=== PATIENT | female | born 1960 | race Caucasian/White ===

== ENCOUNTER 2021-05-25 12:56 | Emergency (ER) | payer MEDICARE ==
[2021-05-25 13:27] VITALS: BP 160/97; PULSE 89; O2SAT 97
[2021-05-25] MEDS ORDERED: Rocephin 1000 MG INJ IM ONE (13:32)
--- NOTE | 2021-05-25 13:36 | ERPHSYRPT ---
- History of Present Illness Time Seen by Provider: 05/25/21 13:33 Source: patient Exam Limitations: no limitations Patient Subjective Stated Complaint: left sided earache Triage Nursing Assessment: Patient ambulated back to ED and transferred self to chair. Patient A+O X3. Patient's skin pink, warm and dry. Patient complains of left sided ear ache for 3 weeks. Patient complains of constant throbbing pain 10/10. Physician History: left sided earache for 3 weeks, denies any fever Timing/Duration: gradual onset, weeks (three) Severity: moderate ENT Location: ear (L) Prearrival Treatment: no prearrival treatment Associated Symptoms: denies symptoms Allergies/Adverse Reactions: No Known Drug Allergies Allergy (Unverified 05/25/21 13:20) Hx Influenza Vaccination/Date Given: No Hx Pneumococcal Vaccination/Date Given: No Immunizations Up to Date: Yes Travel Risk - International Travel Have you traveled outside of the country in past 3 weeks: No - Coronavirus Screening Are you exhibiting any of the following symptoms?: No Close contact with a COVID-19 positive Pt in past 14-21 Days: No - Vaccine Status Have you recieved a Covid-19 vaccination: Yes 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[employer] - Vaccination Dates Date of 2cond Vaccination (if applicable): 12/06/2020 - Review of Systems Constitutional: No Fever, No Chills Eyes: No Symptoms Ears, Nose, & Throat: Ear Pain Respiratory: No Cough, No Dyspnea Cardiac: No Chest Pain, No Edema, No Syncope Abdominal/Gastrointestinal: No Abdominal Pain, No Nausea, No Vomiting, No Diarrhea Genitourinary Symptoms: No Dysuria Musculoskeletal: No Back Pain, No Neck Pain Skin: No Rash Neurological: No Dizziness, No Focal Weakness, No Sensory Changes Psychological: No Symptoms Endocrine: No Symptoms All Other Systems: Reviewed and Negative - Past Medical History Pertinent Past Medical History: Yes Neurological History: No Pertinent History ENT History: No Pertinent History Cardiac History: Hypertension Respiratory History: No Pertinent History Endocrine Medical History: No Pertinent History Musculoskeletal History: No Pertinent History GI Medical History: No Pertinent History History: No Pertinent History Psycho-Social History: No Pertinent History Female Reproductive Disorders: No Pertinent History Other Medical History: hx of blood clot on intestine - Past Surgical History Past Surgical History: Yes Neuro Surgical History: No Pertinent History Cardiac: No Pertinent History Respiratory: No Pertinent History Gastrointestinal: Colon Resection, Hernia Repair Genitourinary: No Pertinent History Musculoskeletal: No Pertinent History Female Surgical History: No Pertinent History - Social History Smoking Status: Current every day smoker How long have you smoked: 0.5 Exposure to second hand smoke: Yes Drug Use: marijuana Patient Lives Alone: No - Female History Hx Now: No - Nursing Vital Signs Nursing Vital Signs: Initial Vital Signs Temperature 98.8 F 05/25/21 13:21 Pulse Rate 89 05/25/21 13:21 Respiratory Rate 18 05/25/21 13:21 Blood Pressure 160/97 05/25/21 13:21 O2 Sat by Pulse Oximetry 97 05/25/21 13:21 Pain Scale Pain Intensity 10 - Physical Exam General Appearance: no apparent distress, alert Eye Exam: bilateral eye: PERRL, EOMI Ear Exam: left ear: erythema, tenderness, TM bulging Nasal Exam: normal inspection Throat Exam: pharynx normal, moist mucus membranes, No tonsillar exudate Neck Exam: supple Cardiovascular/Respiratory Exam: normal breath sounds, regular rate/rhythm Abdominal Exam: non-tender, soft Neurologic Exam: alert, oriented x 3, sensation nml, No motor deficits Skin Exam: normal color, warm, dry SpO2: 97 - Course Nursing assessment & vital signs reviewed: Yes - Progress Progress: unchanged Counseled pt/family regarding: diagnosis, need for follow-up - Departure Departure Disposition: Home Clinical Impression: Left otitis media with effusion Condition: Stable Critical Care Time: No Referrals: HENRRY CAST MD [Primary Care Provider] - Instructions: Serous Otitis Media (DC) Additional Instructions: Discharge/Care Plan ESCOBAR PALACIO was seen on 05/25/21 in the Emergency Room. The patient was counseled regarding Diagnosis,Lab results, Imaging studies, need for follow up and when to return to the Emergency Room. Prescriptions given: Discharge Note I have spoken with the patient and/or caregivers. I have explained the patient's condition, diagnosis and treatment plan based on the information available to me at this time. I have answered the patient's and/or caregiver's questions and addressed any concerns. The patient and/or caregivers have as good understanding of the patient's diagnosis, condition and treatment plan as can be expected at this point. The vital signs have been stable. The patient's condition is stable and appropriate for discharge from the emergency department. The patient will pursue further outpatient evaluation with the primary care physician or other designated or consulting physician as outlined in the discharge instructions. The patient and/or caregivers are agreeable to this plan of care and follow-up instructions have been explained in detail. The patient and/or caregivers have received these instruction. The patient/and or caregivers are aware that any significant change in condition or worsening of symptoms should prompt an immediate return to this or the closest emergency department or call 911. ESCOBAR PALACIO was seen on 05/25/21 n the Emergency Room. At that time you were treated for an emergent condition, during your visit Laboratory, Radiology and/or other procedures may have been ordered. It is very important that you follow-up with your Primary Care Physician HENRRY CAST within the next 24- 48 hours to review your Emergency Room visit and the final results of testing that was ordered. Some test results such as Urine Cultures, Blood Cultures, and other cultures if ordered will not be finalized for 24-48 hours. If you do not have a Primary Care Provider please call the medical records department at [phone] ext [phone] to obtain a copy of your results or you may sign into our patient portal to obtain these results by visiting us @ [email or web address] and completing the following steps: 1. Click on the Patient Portal link 2. Click the Patient Self Enrollment Link to complete the enrollment form and entering your 3. Once the enrollment form is completed you will receive an email with a temporary ID and password at the email address you provided. 4. Next choose a user name and password. Your user name must be at least 4 characters long and your password must be at least 4 characters long. 5. Choose a security question from the list and provide your answer to the question. If you already have signed into the Health Portal you may access your Health Ca re Information 06/04 by the following steps: 1. Login to our website @ [email or web address] 2. Enter your original user name and password. FAQS The [facility] Health Portal is an online tool that contains your Lab Results, Radiology Reports, Visit History, Discharge Instructions and Health Summary Lab and Radiology Results will not be available for 72 hours on the portal. The Portal is a secure site, passwords are encryted and URLs are re-written so they cannot be copied and pasted. You and authorized family members are the only ones who can access your Portal. Also there is a timeout feature that protects your information if you leave the Portal page open. If you have technical difficulty please use the Contact Us link on the page this will allow you to submit any questions you have regarding the Portal or you may contact the Medical Record Department at [phone] ext [phone]. Prescriptions: Amoxicillin 500 mg Cap [Amoxil 500 mg] 500 mg PO TID #30 cap Ciprofloxacin HCl/Dexameth [Ciprodex Otic Suspension] 7.5 ml OT QID #7.5 drops
[2021-05-25] MEDS ORDERED: Rocephin 1000 MG INJ ONE (13:50)
[2021-05-25] MEDS ORDERED: XYLOCAINE 1% HCL 20 ML MDV ONE (13:51)
== END 2021-05-25 14:19 | disposition home or self-care (01) ==
LOC: ED 12:56
DX: H65.92 Unspecified nonsuppurative otitis media, left ear (principal)
CPT/HCPCS: 96372; 99283; J0696

== ENCOUNTER 2023-12-14 21:30 | Emergency (ER) | payer MEDICARE ==
[2023-12-14 22:19] VITALS: TEMP 98.4
--- NOTE | 2023-12-14 22:22 | ERPHSYRPT ---
- History of Present Illness Time Seen by Provider: 12/14/23 22:22 Source: patient, family Exam Limitations: no limitations Physician History: This is a 63-year-old white female patient has a history of hypertension and is a daily smoker of cigarettes and presents with recurrent rash to her anterior chest. Patient does take lisinopril and relatively recently was placed on an additional hypertensive medication amlodipine. There is been no known new exposures to pets or plants. She has been to the clinic different times and received injections of steroid which helped resolve this rash. This current rash began approximately 3 to 4 days ago and is very itchy. Quality: painful Severity: mild Location: torso (Anterior chest right of midline) Possible Causes: no cause identified Modifying Factors: Improves With: scratching Associated Symptoms: denies symptoms Allergies/Adverse Reactions: No Known Drug Allergies Allergy (Verified 12/14/23 22:32) Home Medications: Albuterol Sulfate Mdi [ALBUTEROL/Proair Hfa MDI] 2 puffs IH Q6H PRN PRN 12/14/23 [History] Amlodipine Besylate 10 mg PO DAILY 12/14/23 [History] Cetirizine HCl 10 mg PO DAILY 12/14/23 [History] Lisinopril 20 mg [Zestril 20 MG] 20 mg PO BID 12/14/23 [History] Rivaroxaban 10 mg Tablet [Xarelto 10 mg Tablet] 10 mg PO DAILY 12/14/23 [History] Hx Influenza Vaccination/Date Given: No Hx Pneumococcal Vaccination/Date Given: No Travel Risk - International Travel Have you traveled outside of the country in past 3 weeks: No - Emerging Infectious Disease Are you exhibiting symptoms associated with any current EIDs: No - Review of Systems Constitutional: No Symptoms Eyes: No Symptoms Ears, Nose, & Throat: No Symptoms Respiratory: No Symptoms Cardiac: No Symptoms Abdominal/Gastrointestinal: No Symptoms Genitourinary Symptoms: No Symptoms Musculoskeletal: No Symptoms Skin: Rash (Right of midline anterior chest wall) Neurological: No Symptoms Psychological: No Symptoms Endocrine: No Symptoms Hematologic/Lymphatic: No Symptoms Immunological/Allergic: No Symptoms All Other Systems: Reviewed and Negative - Past Medical History Pertinent Past Medical History: Yes Neurological History: No Pertinent History ENT History: No Pertinent History Cardiac History: Hypertension Respiratory History: No Pertinent History Endocrine Medical History: No Pertinent History Musculoskeletal History: No Pertinent History GI Medical History: No Pertinent History History: No Pertinent History Psycho-Social History: No Pertinent History Female Reproductive Disorders: No Pertinent History Other Medical History: hx of blood clot on intestine - Past Surgical History Past Surgical History: Yes Neuro Surgical History: No Pertinent History Cardiac: No Pertinent History Respiratory: No Pertinent History Gastrointestinal: Colon Resection, Hernia Repair Genitourinary: No Pertinent History Musculoskeletal: No Pertinent History Female Surgical History: No Pertinent History - Social History Smoking Status: Current every day smoker How long have you smoked: 0.5 Exposure to second hand smoke: Yes Drug Use: marijuana Patient Lives Alone: No - Nursing Vital Signs Nursing Vital Signs: Initial Vital Signs Temperature 98.4 F 12/14/23 22:18 Pulse Rate 90 12/14/23 22:18 Respiratory Rate 18 12/14/23 22:18 Blood Pressure 158/72 12/14/23 22:18 O2 Sat by Pulse Oximetry 96 12/14/23 22:18 Pain Scale Pain Intensity 0 - Physical Exam General Appearance: no apparent distress, alert, anxiety Eye Exam: PERRL/EOMI, eyes nml inspection Ears, Nose, Throat Exam: normal ENT inspection, moist mucous membranes Neck Exam: normal inspection, non-tender, supple, full range of motion Respiratory Exam: normal breath sounds, lungs clear, airway intact, No respiratory distress Gastrointestinal/Abdomen Exam: No tenderness Rectal Exam: not done Back Exam: normal inspection, normal range of motion, No CVA tenderness, No vertebral tenderness Extremity Exam: normal inspection, normal range of motion, pelvis stable Neurologic Exam: alert, oriented x 3, cooperative, project program manager II-XII nml as tested, normal mood/affect, nml cerebellar function, nml station & gait, sensation nml Skin Exam: other (Slightly raised slightly pink coalesced rash right side anterior chest wall) Lymphatic Exam: No adenopathy SpO2 Interpretation: normal SpO2: 96 O2 Delivery: Room Air - Course Nursing assessment & vital signs reviewed: Yes - Progress Progress: unchanged Progress Note: 12/14/23 22:35 This patient's medical issue is 1 of low complexity. Level complexity in the workup performed is based on review of the patient's past medical history, review patient's medication list, review of patient drug allergy list, history present illness and physical findings on examination. This patient's workup does not require radiographic or laboratory studies. Counseled pt/family regarding: diagnosis, need for follow-up Medical Desision Making - Diagnostic Testing Diagnostic test were ordered, analyzed, and reviewed by me: No - Risk of complications The pt has a mod risk of morbidity or mortality based on: Need for prescription drug management - Departure Departure Disposition: Home Clinical Impression: Contact dermatitis Condition: Stable Critical Care Time: No Referrals: HENRRY CAST MD [Primary Care Provider] - Follow up/PCP as directed Additional Instructions: Rash site clean and moist daily. Do not use scented lotion. Use Benadryl 25 to 50 mg orally every 8 hours for the next 5 days. Follow-up with your primary care provider for referral to a bingo caller or an mechanical cad designer. Take your medications as prescribed Prescriptions: Prednisone 10 mg [Deltasone 10 mg] 10 mg PO TID #12 tablet Famotidine 20 mg [Pepcid 20 MG] 20 mg PO DAILY #5 tablet
[2023-12-14] MEDS ORDERED: Pepcid 20 MG ONE (22:38)
[2023-12-14] MEDS ORDERED: BENADRYL 25 MG CAPSULE ONE (22:39)
[2023-12-14] MEDS ORDERED: DELTASONE 20 MG ONE (22:39)
[2023-12-14] MEDS: DELTASONE 20 MG PO ONE (22:43)
[2023-12-14] MEDS: Pepcid 20 MG PO ONE (22:43)
[2023-12-14] MEDS: BENADRYL 25 MG CAPSULE PO ONE (22:45)
[2023-12-14 23:03] VITALS: BP 130/88; PULSE 83; RESP 16; O2SAT 98
== END 2023-12-14 23:02 | disposition home or self-care (01) ==
LOC: ED 21:30
DX: L25.9 Unspecified contact dermatitis, unspecified cause (principal); I10 Essential (primary) hypertension; Z79.52 Long term (current) use of systemic steroids; Z79.01 Long term (current) use of anticoagulants; Z79.899 Other long term (current) drug therapy; Z72.0 Tobacco use
CPT/HCPCS: 99282; A9270-GY

== ENCOUNTER 2023-12-21 22:07 | Emergency (ER) | payer MEDICARE ==
[2023-12-21 23:24] VITALS: BP 117/92; PULSE 96; RESP 22; TEMP 98.6; O2SAT 96
--- NOTE | 2023-12-22 00:02 | ERPHSYRPT ---
- History of Present Illness Time Seen by Provider: 12/21/23 23:50 Source: patient Exam Limitations: no limitations Patient Subjective Stated Complaint: left foot pain Triage Nursing Assessment: pt ambulated slowly into ER, alert and oriented x4. Pt c/o left foot/ankle pain. Left ankle slightly swollen, pedal pulse present and strong. Pt states "my left foot just aches something terrible". Pt informed me that her rt foot feels cold all the time, rt pedal pulse present and strong. Physician History: 63yo f presents via private vehicle for 6wks left foot and ankle pain. Pt states it feels like pins and needles in her feet, states she also has tenderness over the top of her left foot and anterior portion of her ankle joint. Pt denies any known trauma, does not believe she rolled her ankle. Pt reports hx of blood clots, takes xarelto daily. Pt denies any pain in the left posterior fossa, no swelling appreciated in the LLE, no erythema of LLE. Pt denies cp, soa, n/v, falls. Method of Injury: unknown Occurred: other (6wks ago) Quality: intermittent, aching Severity of Pain-Max: moderate Severity of Pain-Current: mild Lower Extremities Pain: foot: left, ankle: left Modifying Factors: Improves With: nothing Associated Symptoms: none Allergies/Adverse Reactions: No Known Drug Allergies Allergy (Verified 12/21/23 23:32) Home Medications: Albuterol Sulfate Mdi [ALBUTEROL/Proair Hfa MDI] 2 puffs IH Q6H PRN PRN 12/14/23 [History] Amlodipine Besylate 10 mg PO DAILY 12/14/23 [History] Cetirizine HCl 10 mg PO DAILY 12/14/23 [History] Lisinopril 20 mg [Zestril 20 MG] 20 mg PO BID 12/14/23 [History] Rivaroxaban 10 mg Tablet [Xarelto 10 mg Tablet] 10 mg PO DAILY 12/14/23 [History] Hx Tetanus, Diphtheria Vaccination/Date Given: (unknown) Hx Influenza Vaccination/Date Given: No Hx Pneumococcal Vaccination/Date Given: No Immunizations Up to Date: No Travel Risk - International Travel Have you traveled outside of the country in past 3 weeks: No - Emerging Infectious Disease Are you exhibiting symptoms associated with any current EIDs: No Symptoms: Rash - Review of Systems Constitutional: No Symptoms Respiratory: No Symptoms Cardiac: No Symptoms Abdominal/Gastrointestinal: No Symptoms Musculoskeletal: Arthralgias, Joint Pain, No Joint Redness, No Joint Swelling, No Myalgias - Past Medical History Pertinent Past Medical History: Yes Neurological History: No Pertinent History ENT History: No Pertinent History Cardiac History: Deep Vein Thrombosis, Hypertension Respiratory History: No Pertinent History Endocrine Medical History: No Pertinent History Musculoskeletal History: No Pertinent History GI Medical History: No Pertinent History History: No Pertinent History Psycho-Social History: No Pertinent History Female Reproductive Disorders: No Pertinent History Other Medical History: hx of blood clot on intestine - Past Surgical History Past Surgical History: Yes Neuro Surgical History: No Pertinent History Cardiac: No Pertinent History Respiratory: No Pertinent History Gastrointestinal: Colon Resection, Hernia Repair Genitourinary: No Pertinent History Musculoskeletal: No Pertinent History Female Surgical History: No Pertinent History - Social History Smoking Status: Current every day smoker How long have you smoked: 30 Exposure to second hand smoke: Yes Drug Use: none Patient Lives Alone: No - Nursing Vital Signs Nursing Vital Signs: Initial Vital Signs Temperature 98.6 F 12/21/23 23:21 Pulse Rate 96 H 12/21/23 23:21 Respiratory Rate 22 12/21/23 23:21 Blood Pressure 117/92 12/21/23 23:21 O2 Sat by Pulse Oximetry 96 12/21/23 23:21 Pain Scale Pain Intensity 7 - Physical Exam General Appearance: no apparent distress, alert Cardiovascular/Respiratory Exam: chest non-tender, normal breath sounds, regular rate/rhythm Gastrointestinal/Abdominal Exam: non-tender Legs Exam: bilateral leg: non-tender, normal inspection, normal range of motion, no evidence of injury Knees Exam: bilateral knee: non-tender, normal inspection, normal range of motion, no evidence of injury Ankle Exam: left ankle: soft tissue tenderness (over anterior superior portion of ankle/foot), bilateral ankle: non-tender, normal inspection, normal range of motion, no evidence of injury Foot Exam: left foot: pain, soft tissue tenderness (over anterior superior portion of ankle/foot), bilateral foot: swelling (no swelling appreciated on exam) Neuro/Tendon Exam: normal sensation, normal motor functions, responds to pain, no evidence tendon injury Mental Status Exam: alert, oriented x 3, cooperative Skin Exam: normal color, warm, dry SpO2 Interpretation: normal SpO2: 96 O2 Delivery: Room Air Ordered Tests: Active Orders 24 hr Category Date Time Status ANKLE (3 VIEWS) Stat Exams 12/22/23 00:00 Taken FOOT (MINIMUM 3 VIEWS) Stat Exams 12/22/23 00:00 Taken Medication Summary Discontinued Medications Generic Name Dose Route Start Last Admin Trade Name Chris PRN Reason Stop Dose Admin Gabapentin 100 mg 12/22/23 01:15 12/22/23 01:23 Gabapentin 100 Mg Capsule PO 12/22/23 01:16 100 mg STAT ONE Administration - Progress Progress: pain not gone completely Progress Note: 12/22/23 02:03 no acute fracture on imaging of ankle/foot no significant improvement w/ gabapentin pt up walking around room on re-exam, asking to go home likely neuropathic pain vs ankle/foot sprain plan to dc home w/ PCP follow up discussed pain management w/ tylenol/ibuprofen/ice/heat elevate foot/ankle when possible walk as tolerable return to ED if: unable to bear weight, pain unbearable, swelling significantly worsens 12/22/23 02:08 Pt left ER before signing discharge paperwork Counseled pt/family regarding: diagnosis, need for follow-up, rad results Medical Desision Making - Diagnostic Testing Diagnostic test were ordered, analyzed, and reviewed by me: Yes Radiological Interpretation: Reviewed by me - Risk of complications Minimal Risk: Minimal risk of morbidity - Departure Departure Disposition: Home Clinical Impression: Left foot pain, Neuropathic pain Left ankle pain Qualifiers: Chronicity: acute Qualified Code(s): M25.572 - Pain in left ankle and joints of left foot Condition: Stable Critical Care Time: No Referrals: DOCTOR,NO FAMILY [Primary Care Provider] - Follow up/PCP as directed Additional Instructions: likely neuropathic pain vs ankle/foot sprain plan to dc home w/ PCP follow up discussed pain management w/ tylenol/ibuprofen/ice/heat elevate foot/ankle when possible walk as tolerable return to ED if: unable to bear weight, pain unbearable, swelling significantly worsens
[2023-12-22] MEDS: Neurontin PO ONE (01:23)
--- NOTE | 2023-12-22 08:42 | XRAY ---
Indication: Pain. No known injury. Comparison: None 3 view left ankle demonstrates mild anterior lateral soft tissue swelling and osteopenia. No other bony, articular, or soft tissue abnormalities.
--- NOTE | 2023-12-22 08:43 | XRAY ---
Indication: Pain. No known injury. Comparison: None 3 nonweightbearing views left foot demonstrates osteopenia. No other bony, articular, or soft tissue abnormalities.
== END 2023-12-22 02:06 ==
LOC: ED 22:07
DX: M25.572 Pain in left ankle and joints of left foot (principal); M79.672 Pain in left foot; G62.9 Polyneuropathy, unspecified; I10 Essential (primary) hypertension; Z79.01 Long term (current) use of anticoagulants; Z79.899 Other long term (current) drug therapy; Z72.0 Tobacco use
CPT/HCPCS: 73610; 73630; 99283; A9270-GY

== ENCOUNTER 2023-12-29 11:29 | Emergency (ER) | payer MEDICARE ==
[2023-12-29 11:41] VITALS: RESP 20; TEMP 98.4
[2023-12-29] MEDS ORDERED: DELTASONE 20 MG ONE (11:51)
[2023-12-29] MEDS ORDERED: Indocin 25 MG ONE (11:51)
[2023-12-29] MEDS: Indocin 25 MG PO ONE (11:52)
[2023-12-29] MEDS: DELTASONE 20 MG PO ONE (11:52)
--- NOTE | 2023-12-29 11:55 | ERPHSYRPT ---
- History of Present Illness Time Seen by Provider: 12/29/23 11:50 Exam Limitations: no limitations Patient Subjective Stated Complaint: PT state "I have been to [facility] and here before for this. A week ago my foot started to hurt really bad and I cannot walk on it. They said it was cellulitis and put me on cephalexin and I am on that now but it just hurts so bad." Triage Nursing Assessment: PT presented alert and oriented X 3, skin pwd. Pt will not put any weight on her left foot. Pt left foot cool to touch, no swelling, tender to touch. PT toes are dark in colot. Physician History: 63-year-old female presents to our ED for pain to her left foot. Patient was seen at [facility] and also seen here for the same. Patient had an x-ray which showed no acute fracture dislocations. Patient still having ongoing pain. Patient currently on Keflex for suspected cellulitis. Pain described as an ache that is localized. Pain worse with movement of her left ankle joint. No history of gout. Pain worse with movement and palpation. Pain improved with rest. Patient voices no other complaints or concerns at this time. Portions of this note were created with voice recognition technology. There may be grammatical, spelling, punctuation or sound alike errors Method of Injury: unknown Occurred: other Quality: constant (1 week) Severity of Pain-Max: moderate Severity of Pain-Current: mild Lower Extremities Pain: ankle: left Modifying Factors: Improves With: movement Associated Symptoms: unable to bear weight Allergies/Adverse Reactions: No Known Drug Allergies Allergy (Verified 12/21/23 23:32) Home Medications: Albuterol Sulfate Mdi [ALBUTEROL/Proair Hfa MDI] 2 puffs IH Q6H PRN PRN 12/14/23 [History] Amlodipine Besylate 10 mg PO DAILY 12/14/23 [History] Cetirizine HCl 10 mg PO DAILY 12/14/23 [History] Lisinopril 20 mg [Zestril 20 MG] 20 mg PO BID 12/14/23 [History] Rivaroxaban 10 mg Tablet [Xarelto 10 mg Tablet] 10 mg PO DAILY 12/14/23 [History] Hx Tetanus, Diphtheria Vaccination/Date Given: (unknown) Hx Influenza Vaccination/Date Given: No Hx Pneumococcal Vaccination/Date Given: No Immunizations Up to Date: No Travel Risk - International Travel Have you traveled outside of the country in past 3 weeks: No - Emerging Infectious Disease Are you exhibiting symptoms associated with any current EIDs: No Symptoms: Rash - Review of Systems Constitutional: No Symptoms, No Fever, No Chills Eyes: No Symptoms Ears, Nose, & Throat: No Symptoms Respiratory: No Symptoms, No Cough, No Dyspnea Cardiac: No Symptoms, No Chest Pain, No Edema, No Syncope Abdominal/Gastrointestinal: No Symptoms, No Abdominal Pain, No Nausea, No Vomiting, No Diarrhea Genitourinary Symptoms: No Symptoms, No Dysuria Musculoskeletal: No Symptoms, No Back Pain, No Neck Pain Skin: No Symptoms, No Rash Neurological: No Symptoms, No Dizziness, No Focal Weakness, No Sensory Changes Psychological: No Symptoms Endocrine: No Symptoms Hematologic/Lymphatic: No Symptoms Immunological/Allergic: No Symptoms All Other Systems: Reviewed and Negative - Past Medical History Pertinent Past Medical History: Yes Neurological History: No Pertinent History ENT History: No Pertinent History Cardiac History: Deep Vein Thrombosis, Hypertension Respiratory History: No Pertinent History Endocrine Medical History: No Pertinent History Musculoskeletal History: No Pertinent History GI Medical History: No Pertinent History History: No Pertinent History Psycho-Social History: No Pertinent History Female Reproductive Disorders: No Pertinent History Other Medical History: hx of blood clot on intestine - Past Surgical History Past Surgical History: Yes Neuro Surgical History: No Pertinent History Cardiac: No Pertinent History Respiratory: No Pertinent History Gastrointestinal: Colon Resection, Hernia Repair Genitourinary: No Pertinent History Musculoskeletal: No Pertinent History Female Surgical History: No Pertinent History - Social History Smoking Status: Current every day smoker How long have you smoked: 30 Exposure to second hand smoke: Yes Drug Use: none Patient Lives Alone: No - Nursing Vital Signs Nursing Vital Signs: Initial Vital Signs Temperature 98.4 F 12/29/23 11:37 Pulse Rate 80 12/29/23 11:37 Respiratory Rate 20 12/29/23 11:37 Blood Pressure 110/85 12/29/23 11:37 O2 Sat by Pulse Oximetry 107 H 12/29/23 11:37 Pain Scale Pain Intensity 5 - Physical Exam General Appearance: no apparent distress, alert Eyes, Ears, Nose, Throat Exam: moist mucous membranes Neck Exam: non-tender, supple Cardiovascular/Respiratory Exam: chest non-tender, normal breath sounds, regular rate/rhythm, no respiratory distress Gastrointestinal/Abdominal Exam: non-tender, guarding Back Exam: normal inspection, No vertebral tenderness Hips Exam: bilateral: non-tender, normal inspection, normal range of motion, no evidence of injury Legs Exam: bilateral leg: non-tender, normal inspection, normal range of motion, no evidence of injury Knees Exam: bilateral knee: non-tender, normal inspection, normal range of motion, no evidence of injury Ankle Exam: right ankle: non-tender, normal inspection, normal range of motion, no evidence of injury, left ankle: pain, soft tissue tenderness, other (Involved left lower extremities neurovascular tact distally compartments are soft cap refill less than 2 seconds.) Foot Exam: bilateral foot: non-tender, normal inspection, normal range of motion, no evidence of injury, other (Both lower extremities are neurovascular tact distally compartments are soft cap refill less than 2 seconds.) Neuro/Tendon Exam: normal sensation, normal motor functions Mental Status Exam: alert, oriented x 3, cooperative Skin Exam: normal color, warm, dry SpO2 Interpretation: normal SpO2: 107 O2 Delivery: Room Air - Course Nursing assessment & vital signs reviewed: Yes - Radiology Exams Ankle X-ray Interpretation: Teleradiologist Report (Improving swelling. No new or acute findings) Ordered Tests: Active Orders 24 hr Category Date Time Status ANKLE (3 VIEWS) Stat Exams 12/29/23 11:59 Completed BLOOD CULTURE Stat Lab 12/29/23 16:34 Ordered CBC W DIFF Stat Lab 12/29/23 16:13 Completed CMP Stat Lab 12/29/23 16:13 Completed ESR [Erythrocyte Sedimentation Rate] Stat Lab 12/29/23 16:13 Completed Transfer Order Routine Transfer 12/29/23 Ordered Medication Summary Discontinued Medications Generic Name Dose Route Start Last Admin Trade Name Freq PRN Reason Stop Dose Admin Indomethacin 25 mg 12/29/23 11:48 12/29/23 11:52 Indomethacin 25 Mg Capsule PO 12/29/23 11:49 25 mg STAT ONE Administration Indomethacin Confirm 12/29/23 11:51 Indomethacin 25 Mg Capsule Administered 12/29/23 11:52 Dose 25 mg .ROUTE .STK-MED ONE Prednisone 60 mg 12/29/23 11:48 12/29/23 11:52 Prednisone 20 Mg Tablet PO 12/29/23 11:49 60 mg STAT ONE Administration Prednisone Confirm 12/29/23 11:51 Prednisone 20 Mg Tablet Administered 12/29/23 11:52 Dose 60 mg .ROUTE .STK-MED ONE Lab/Rad Data: Laboratory Result Diagrams 12/29/23 16:13 12/29/23 16:13 Laboratory Results 12/29/23 12/29/23 12/29/23 Range/Units 16:13 16:13 16:13 WBC 17.5 H (4.0-10.5) x10^3/uL RBC 5.61 H (4.1-5.4) x10^6/uL Hgb 15.7 (12.0-16.0) g/dL Hct 47.4 H (35-47) % MCV 84.5 (78-100) fL MCH 28.0 (26-32) pg MCHC 33.1 (32-36) g/dL RDW 14.0 (11.5-14.0) % Plt Count 304 (150-450) x10^3/uL MPV 9.7 (7.5-11.0) fL Gran % 92.0 H (36.0-66.0) % Immature Gran % (Auto) 0.5 H (0.00-0.4) % Nucleat RBC Rel Count 0.0 (0.00-0.1) % Eos # (Auto) 0.03 (0-0.5) x10^3/uL Immature Gran # (Auto) 0.08 H (0.00-0.03) x10^3u/L Absolute Lymphs (auto) 1.07 (1.0-4.6) x10^3/uL Absolute Monos (auto) 0.15 (0.0-1.3) x10^3/uL Absolute Nucleated RBC 0.00 (0.00-0.01) x10^3u/L Lymphocytes % 6.1 L (24.0-44.0) % Monocytes % 0.9 (0.0-12.0) % Eosinophils % 0.2 (0.00-5.0) % Basophils % 0.3 (0.0-0.4) % Absolute Granulocytes 16.07 H (1.4-6.9) x10^3/uL Basophils # 0.06 (0-0.4) x10^3/uL ESR 48 H (0-20) mm/hr Sodium 140 (135-145) mmol/L Potassium 4.6 (3.5-5.1) mmol/L Chloride 104 (98-107) mmol/L Carbon Dioxide 23 (22-30) mmol/L Anion Gap 17.2 H (5-15) MEQ/L BUN 19 H (7-17) mg/dL Creatinine 1.13 H (0.52-1.04) mg/dL Estimated GFR 54.3 ML/MIN Glucose 133 H (74-106) mg/dL Calcium 9.8 (8.4-10.2) mg/dL Total Bilirubin 0.50 (0.2-1.3) mg/dL AST 19 (14-36) U/L ALT 23 (0-35) U/L Alkaline Phosphatase 119 (38-126) U/L Serum Total Protein 8.4 H (6.3-8.2) g/dL Albumin 4.4 (3.5-5.0) g/dL - Progress Progress: improved Progress Note: Orthopedic surgery consulted. Dr. Bah evaluated patient at bedside at approximately 3:30 PM. He tapped of the involved ankle joint. He states the fluid was minimal but clear. He feels the diagnosis is gout. There is no signs of a septic joint per Dr. Bah. He advised patient may be discharged on Indocin with outpatient follow-up. Portions of this note were created with voice recognition technology. There may be grammatical, spelling, punctuation or sound alike errors 12/29/23 15:43 63-year-old female presents to our ED for evaluation of pain to her left ankle. X-ray negative for acute findings. Patient currently on Keflex. Orthopedic surgery consulted. Ortho tapped the ankle and states that synovial fluid is clear. Although there is not enough for sample to be sent off. Orthopedic feels that patient is having a gout flareup and request patient to be treated as such. Patient received a dose of prednisone in our ED. Indocin administered as well. Laboratory workup completed. Leukocytosis observed. Blood cultures obtained. Results pending. Per orthopedic recommendation we will treat patient as gout flareup. Prednisone forwarded to patient's pharmacy as well as colchicine. Patient to supplement with [id number] NSAID as needed. Patient referred to orthopedic clinic for follow-up. Patient agrees to follow-up in orthopedic clinic tomorrow for further evaluation and treatment. A prescription for a pickup walker was provided to patient. Patient sisters at the bedside. They agree to follow-up with the orthopedic clinic tomorrow and pickle maker medications as well as the prescribed pickup walker. Portions of this note were created with voice recognition technology. There may be grammatical, spelling, punctuation or sound alike errors Complexity problem addressed is moderate acute complicated No critical care time Complex of data reviewed and analyzed is extensive. Test ordered test reviewed results analyzed and correlated clinically with history and physical examination. Management discussed with orthopedic surgery who evaluated patient at the bedside. Risk of complication and or risk of morbidity/mortality patient management is moderate. A prescription for colchicine and prednisone forwarded to patient's pharmacy Vital stable. Time spent to discharge patient is approximately 30 minutes. Plan of care established for shared decision making. No social determinants of health present impede follow-up. Portions of this note were created with voice recognition technology. There may be grammatical, spelling, punctuation or sound alike errors 12/29/23 17:31 Counseled pt/family regarding: lab results, diagnosis, need for follow-up, rad results - Departure Departure Disposition: Home Clinical Impression: Joint pain, Gout attack Condition: Stable Critical Care Time: No Referrals: DOCTOR,NO FAMILY [Primary Care Provider] - Follow up/PCP as directed MAC SCOTT MD [ACTIVE STAFF] - Follow up/PCP as directed Instructions: Joint Pain Additional Instructions: Discharge/Care Plan ESCOBAR PALACIO was seen on 12/29/23 in the Emergency Room. The patient was coun seled regarding Diagnosis,Lab results, Imaging studies, need for follow up and when to return to the Emergency Room. Prescriptions given: Discharge Note I have spoken with the patient and/or caregivers. I have explained the patient's condition, diagnosis and treatment plan based on the information available to me at this time. I have answered the patient's and/or caregiver's questions and addressed any concerns. The patient and/or caregivers have as good understanding of the patient's diagnosis, condition and treatment plan as can be expected at this point. The vital signs have been stable. The patient's condition is stable and appropriate for discharge from the emergency department. The patient will pursue further outpatient evaluation with the primary care physician or other designated or consulting physician as outlined in the discharge instructions. The patient and/or caregivers are agreeable to this plan of care and follow-up instructions have been explained in detail. The patient and/or caregivers have received these instruction. The patient/and or caregivers are aware that any significant change in condition or worsening of symptoms should prompt an immediate return to this or the closest emergency department or call 911. Prescriptions: Colchicine 0.6 mg PO DAILY 7 Days #9 tablet Prednisone 10 mg [Deltasone 10 mg] 40 mg PO DAILY 3 Days #12 tablet Outpatient Orders: Ortho Referral Time Frame: 1 Day, Facility: [facility], Location: [facility]
--- NOTE | 2023-12-29 12:53 | XRAY ---
Indication: Pain. No known injury. Comparison: December 22, 2023 3 view left ankle demonstrates improving soft tissue swelling. Stable osteopenia. No new/acute findings.
[2023-12-29 15:05] VITALS: PULSE 88
--- NOTE | 2023-12-29 15:54 | PCM.CONS ---
History of Present Illness - Consult Date of Consultation Date: 12/29/23 Reason for Consult: Left ankle pain Consulting Provider: INDIRA LACEY MD - [facility] History of Present Illness: is a 63 year old femaleWith 5 days of left dorsal lateral ankle foot and foot pain. No injury. No prior problems.No wounds or bug bites.No history of gout. No other joints affected.Was seen 4 days ago and started on Keflex with no improvement..She had no fevers or chills.Diabetic and has cardiac disease Medications & Allergies Home Medications: Home Medication List Albuterol Sulfate Mdi [ALBUTEROL/Proair Hfa MDI] 2 puffs IH Q6H PRN PRN 12/14/23 [History Confirmed 12/21/23] Amlodipine Besylate 10 mg PO DAILY 12/14/23 [History Confirmed 12/21/23] Cetirizine HCl 10 mg PO DAILY 12/14/23 [History Confirmed 12/21/23] Lisinopril 20 mg [Zestril 20 MG] 20 mg PO BID 12/14/23 [History Confirmed 12/21/23] Prednisone 10 mg [Deltasone 10 mg] 10 mg PO TID #12 tablet 12/14/23 [Rx Confirmed 12/21/23] Rivaroxaban 10 mg Tablet [Xarelto 10 mg Tablet] 10 mg PO DAILY 12/14/23 [History Confirmed 12/21/23] Allergies/Adverse Reactions: Allergies Allergy/AdvReac Type Severity Reaction Status Date / Time No Known Drug Allergies Allergy Verified 12/21/23 23:32 - Past Medical History Past Medical History: Yes Neurological History: No Pertinent History ENT History: No Pertinent History Cardiac History: Deep Vein Thrombosis, Hypertension Respiratory History: No Pertinent History Endocrine Medical History: No Pertinent History Musculoskelatal History: No Pertinent History GI Medical History: No Pertinent History History: No Pertinent History Pyscho-Social History: No Pertinent History Reproductive Disorders: No Pertinent History Comment: hx of blood clot on intestine - Past Surgical History Past Surgical History: Yes Neuro Surgical History: No Pertinent History Cardiac History: No Pertinent History Respiratory Surgery: No Pertinent History GI Surgical History: Colon Resection, Hernia Repair Genitourinary Surgical Hx: No Pertinent History Musculskeletal Surgical Hx: No Pertinent History Female Surgical History: No Pertinent History - Social History Smoking Status: Current every day smoker How long have you smoked: 30 Exposure to second hand smoke: Yes Alcohol: None Drug Use: none - Social Determinants of Health Will the patient participate in the screening: Yes Do you worry about a steady place to live?: No Do you have any problems with any of the following?: No known problems In the past 12 months,have you had to go without utilities?: No Have you or anyone in your house had to go without enough: No Transportation Issues: No Has anyone in your support network made you feel unsafe?: No - Nursing Vital Signs Nursing Vital Signs: Vital Signs - 24 hr Temp Pulse Resp BP BP Pulse Ox 12/29/23 15:44 107 H 12/29/23 15:00 88 122/96 97 12/29/23 14:46 125/74 12/29/23 14:30 161/117 12/29/23 14:15 146/102 12/29/23 13:46 68 141/116 97 12/29/23 13:31 146/97 12/29/23 13:15 148/108 12/29/23 13:00 147/119 12/29/23 12:19 68 123/95 98 12/29/23 12:00 108/74 12/29/23 11:47 102/86 99 12/29/23 11:37 98.4 F 80 20 110/85 110/85 107 H - Physical Exam SpO2: 107 - Narrative Narrative Physical Exam: Ortho Physical Exam Pleasant female, no apparent distress, alert and orient x 3, normal height and weight Somewhat anxious andDifficult to hold still Left ankle shows anterior lateral erythema on the ankle and dorsal foot. No fluctuance. No wounds.Painful with motion. Very tender to touch the dorsum of the footEven on the great toe.Pain with ankle motion. Good sensation. Weak dorsalis pedis pulse.Good sensation X-ray of left ankle appears normal Assessment/Plan (1) Left ankle pain Current Visit: No Status: Acute Assessment & Plan: Discussed with patient that I feel this is aPossible attack of gout versus cellulitis versus septic ankle joint.. Patient consented to aspiration of the ankle which was done with 18-gauge needle along the anterolateral gutter.1 small drop of fluid was obtained but this was clear and did not appear purulent. There was not enough fluid to send for crystal exam. Patient will be getting ESR and CRP drawn. Explained to the patient and the ER doctor I feel this most likely a gout attack and may treat with indomethacin 75 mg daily With extended release or 25 mg 3 times daily . She may follow-up with Ortho in 1 week Return sooner if worsen. Patient denies renal Disease or stomach ulcers She encouraged to hydrate well and stop drinking her ice tea which is caffeinated until this calms down.She may eventually need to see the home care coordinator or primary care to start Allopurinol Code(s): M25.572 - PAIN IN LEFT ANKLE AND JOINTS OF LEFT FOOT Results - Radiology Impressions Radiology Exams & Impressions: Radiology Procedures Category Date Time Status ANKLE (3 VIEWS) Stat Exams 12/29/23 11:59 Completed
[2023-12-29 16:15] LABS: Absolute Neutrophil Ct (ANC) 16.07 x10^3/uL (1.4-6.9); BASOPHIL % 0.3 % (0.0-0.4); Basophil (Absolute #) 0.06 x10^3/uL (0-0.4); Eosinophil % 0.2 % (0.00-5.0); Eosinophil (Absolute #) 0.03 x10^3/uL (0-0.5); Hematocrit 47.4 % (35-47); Hemoglobin 15.7 g/dL (12.0-16.0); IMMATURE GRAN # 0.08 x10^3u/L (0.00-0.03); IMMATURE GRAN % 0.5 % (0.00-0.4); Lymphocyte (Absolute #) 1.07 x10^3/uL (1.0-4.6); Lymphocytes % 6.1 % (24.0-44.0); Mean Cell Volume 84.5 fL (78-100); Mean Corpuscular Hgb Concent. 33.1 g/dL (32-36); Mean Platelet Volume 9.7 fL (7.5-11.0); Monocyte (Absolute #) 0.15 x10^3/uL (0.0-1.3); Monocytes % 0.9 % (0.0-12.0); Platelet Count 304 x10^3/uL (150-450); Red Blood Count 5.61 x10^6/uL (4.1-5.4); White Blood Count 17.5 x10^3/uL (4.0-10.5)
[2023-12-29 16:31] LABS: ALBUMIN 4.4 g/dL (3.5-5.0); ANION GAP 17.2 MEQ/L (5-15); BILIRUBIN,TOTAL 0.5 mg/dL (0.2-1.3); Calcium 9.8 mg/dL (8.4-10.2); Creatinine 1 1.13 mg/dL (0.52-1.04); EST GLOMERULAR FILTRATION RATE 54.3 ML/MIN; Potassium 4.6 mmol/L (3.5-5.1); Total Protein 8.4 g/dL (6.3-8.2)
[2023-12-29 17:17] VITALS: BP 99/74
[2023-12-29 17:27] VITALS: O2SAT 107
== END 2023-12-29 17:52 | disposition home or self-care (01) ==
LOC: ED 11:29
DX: M10.072 Idiopathic gout, left ankle and foot (principal); L03.116 Cellulitis of left lower limb; M25.572 Pain in left ankle and joints of left foot; F17.200 Nicotine dependence, unspecified, uncomplicated; D72.829 Elevated white blood cell count, unspecified; I10 Essential (primary) hypertension; Z79.01 Long term (current) use of anticoagulants
CPT/HCPCS: 20610; 36415; 73610; 80053; 85025; 85652; 86140; 87040; 99203; 99284; A9270-GY

== ENCOUNTER 2024-03-07 23:52 | Emergency (ER) | payer MEDICARE ==
[2024-03-08 00:09] VITALS: BP 95/72; PULSE 102; RESP 20; TEMP 98.3; O2SAT 100
--- NOTE | 2024-03-08 00:19 | ERPHSYRPT ---
- History of Present Illness Source: patient Exam Limitations: other (Poor historian) Patient Subjective Stated Complaint: C/O pain to left thigh that started approx one hour prior to coming into the ER tonight Triage Nursing Assessment: Patient came back to ER by W/C. She is alert and oriented; anxious. NO SOB. Stump to left leg is wrapped with a GERALDO drain in place and draining without difficulties. Tubing noted to left thigh area (reported are of pain) with a tegaderm dressing in place; C/D/I. Unsure what the item in left thigh is but patient reports it was placed there by her surgeon at [facility] in [place]. She has an appointment there on . Physician History: 64-year-old female who had a BKA revision at [facility] on 03/03/2024 presents to the ER wanting to have a implanted device removed from her left thigh. She states it is painful, and she is worried that is going to get infected. She denies fever. Method of Injury: unknown ( status post left BKA revision) Occurred: other ( surgery on 03/03/2020) Severity of Pain-Max: moderate Severity of Pain-Current: moderate Lower Extremities Pain: foot: left Modifying Factors: Improves With: movement Allergies/Adverse Reactions: No Known Drug Allergies Allergy (Verified 03/07/24 23:59) Home Medications: Lisinopril 20 mg [Zestril 20 MG] 20 mg PO BID 12/14/23 [History] Rivaroxaban 10 mg Tablet [Xarelto 10 mg Tablet] 10 mg PO DAILY 12/14/23 [H istory] Oxycodone HCl 5 mg Ir [Oxy-IR 5 MG] 10 mg PO Q4H PRN PRN 03/08/24 [History] Hx Tetanus, Diphtheria Vaccination/Date Given: (unknown) Hx Influenza Vaccination/Date Given: No Hx Pneumococcal Vaccination/Date Given: No Immunizations Up to Date: Yes Travel Risk - International Travel Have you traveled outside of the country in past 3 weeks: No - Emerging Infectious Disease Are you exhibiting symptoms associated with any current EIDs: No Symptoms: Rash - Review of Systems Constitutional: No Symptoms Eyes: No Symptoms Ears, Nose, & Throat: No Symptoms Respiratory: No Symptoms Cardiac: No Symptoms Abdominal/Gastrointestinal: No Symptoms Genitourinary Symptoms: No Symptoms Skin: No Symptoms Neurological: No Symptoms Psychological: No Symptoms Endocrine: No Symptoms Hematologic/Lymphatic: No Symptoms Immunological/Allergic: No Symptoms - Past Medical History Pertinent Past Medical History: Yes Neurological History: No Pertinent History ENT History: No Pertinent History Cardiac History: Deep Vein Thrombosis, Hypertension Respiratory History: No Pertinent History Endocrine Medical History: No Pertinent History Musculoskeletal History: No Pertinent History GI Medical History: No Pertinent History History: No Pertinent History Psycho-Social History: No Pertinent History Female Reproductive Disorders: No Pertinent History Other Medical History: hx of blood clot on intestine - Past Surgical History Past Surgical History: Yes Neuro Surgical History: No Pertinent History Cardiac: No Pertinent History Respiratory: No Pertinent History Gastrointestinal: Colon Resection, Hernia Repair Genitourinary: No Pertinent History Musculoskeletal: No Pertinent History Female Surgical History: No Pertinent History Other Surgical History: Left leg amputation ([facility] in [place]) - Social History Smoking Status: Current every day smoker How long have you smoked: 30 Exposure to second hand smoke: Yes Drug Use: none Patient Lives Alone: No - Social Determinants of Health Will the patient participate in the screening: Yes Do you worry about a steady place to live?: No Do you have any problems with any of the following?: No known problems In the past 12 months,have you had to go without utilities?: No Transportation Issues: No Has anyone in your support network made you feel unsafe?: No Have you or anyone in your house had to go without enough: No - Nursing Vital Signs Nursing Vital Signs: Initial Vital Signs Pulse Rate 102 H 03/08/24 00:01 Respiratory Rate 20 03/08/24 00:01 Blood Pressure 95/72 03/08/24 00:01 O2 Sat by Pulse Oximetry 100 03/08/24 00:01 Pain Scale Pain Intensity 6 mildly tacky, borderline hypotension - Physical Exam General Appearance: no apparent distress, anxiety Eyes, Ears, Nose, Throat Exam: normal ENT inspection Neck Exam: normal inspection Cardiovascular/Respiratory Exam: tachycardia ( mildly tacky) Gastrointestinal/Abdominal Exam: non-tender, soft Back Exam: normal inspection Hips Exam: bilateral: non-tender, normal inspection, normal range of motion, no evidence of injury Legs Exam: right leg: other ( right BKA with Nino-Puga drain distal to the knee which appears to be draining properly, tube left anterior thigh with unknown purpose but without any surrounding edema or erythema), left leg: non- tender, normal inspection, normal range of motion, no evidence of injury Knees Exam: bilateral knee: non-tender, normal inspection, normal range of motion, no evidence of injury Mental Status Exam: alert, oriented x 3, cooperative Skin Exam: normal color, warm, dry SpO2 Interpretation: normal SpO2: 100 O2 Delivery: Room Air - Course Nursing assessment & vital signs reviewed: Yes - Progress Progress Note: 03/08/24 00:22 nursing note and vital signs reviewed. No further housing insecurity noted. Patient is status post left BKA revision on 02/18/2003/03/2024 and has an apparatus in her left thigh which she wants removed. Unfortunately I do not know the purpose of the apparatus or what is connected to. Advised the patient to follow-up with her surgeon first thing in the morning and return to the ER as needed. there is no evidence of any postop infection at the site as there is no edema, no erythema, and no visible exudate. She is afebrile. Counseled pt/family regarding: diagnosis, need for follow-up Medical Desision Making - Risk of complications Low Risk: Low risk of morbidity from additional dx testing or treatment - Departure Departure Disposition: Home Clinical Impression: Encounter for wound re-check Condition: Stable Critical Care Time: No Referrals: MAC SCOTT MD [Primary Care Provider] - Follow up/PCP as directed Instructions: Managing pain after surgery Additional Instructions: Follow-up with your surgeon at [facility] soon as possible Return to ER as needed
== END 2024-03-08 00:20 | disposition home or self-care (01) ==
LOC: ED 23:52
DX: Z48.01 Encounter for change or removal of surgical wound dressing (principal); M79.652 Pain in left thigh; I10 Essential (primary) hypertension; Z79.01 Long term (current) use of anticoagulants; Z79.891 Long term (current) use of opiate analgesic; Z79.899 Other long term (current) drug therapy; Z72.0 Tobacco use
CPT/HCPCS: 99281